=== PATIENT | female | born 1945 | race Caucasian/White ===

== ENCOUNTER 2018-06-29 16:02 | Observation (INO) | payer OTHER, MEDICARE, SELFPAY ==
[2018-06-29 16:05] VITALS: BP 148/69; PULSE 107; RESP 22; TEMP 37.1; O2SAT 98
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
--- NOTE | 2018-06-29 18:14 | NUR.NOTE ---
To radiology for xrays with escort, via stretcher, at 1800. Multiple attempts to obtain peripheral access. Shirt Turner attempt x2. Crystal RN attempts x2 with US without success. 3rd RN to try, however patient in Xray. Dr. Pisano aware. Anesthesia contacted and line placed while patient in CT, per report.Nursing Note:
[2018-06-29 18:17] LABS: Abs Immature Grans 0.05 k/cumm (0.0-0.09); Absolute Basophil Count 0.03 k/cumm (0.0-0.2); Absolute Lymphocyte Count 0.97 k/cumm (1.2-3.4); Basophils % 0.2; Eosinophils % 0.7; HCT 41.5 % (36.0-46.0); HGB 13.7 g/dL (12.0-15.5); Immature Grans % 0.3; Lymphocytes % 5.8; Mean Corpuscular Hemoglobin 28.8 pg (27.0-33.0); Mean Corpuscular Volume 87.4 fL (80-95); Mean Platelet Volume 10.5 fL (8.0-11.0); Monocytes % 5.4; Neutrophils % 87.6; Platelet Count 245 x1000/uL (130-400); RBC 4.75 m/cumm (4.00-5.20); White Blood Cell Count 16.74 k/cumm (4.4-10.8)
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
[2018-06-29 18:26] LABS: Absolute Eosinophil Count 0.12 k/cumm (0.0-0.7); Absolute Neutrophil Count 14.66 k/cumm (1.2-6.7)
[2018-06-29 18:28] LABS: ALT 16 U/L (12-78); AST 16 U/L (15-37); Albumin 3.3 g/dL (3.4-5.0); Alkaline Phosphatase 121 U/L (46-116); Anion Gap 12.8 mmol/L (3-11); BUN 31 mg/dL (7-18); Bilirubin, Total 0.3 mg/dL (0.2-1.0); CO2 29.2 mmol/L (21.0-32.0); CREATININE 1.38 mg/dL (0.55-1.02); Calcium 9.6 mg/dL (8.5-10.1); Chloride 99 mmol/L (98-107); Glucose 93 mg/dL (70-100); Magnesium 1.6 mg/dL (1.8-2.4); Sodium 141 mmol/L (136-145); Total Protein 7.6 g/dL (6.4-8.2); Troponin I 0.04 ng/mL (0.00-0.06)
[2018-06-29] MEDS: Normal Saline 250 ML IV (19:30)
[2018-06-29] MEDS: Omnipaque 350 MG/ML 50 ML BTL IV (19:41)
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
[2018-06-29 19:51] VITALS: TEMP 36.9
[2018-06-29] MEDS: fentaNYL 100 MCG/2 ML VIAL 25 MCG IVP (19:51)
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
[2018-06-29 20:00] VITALS: BP 153/93; PULSE 102; RESP 16; TEMP 36.8; O2SAT 17
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
[2018-06-29] MEDS: Potassium Chloride 20 MEQ TABCR 40 MEQ PO (20:19)
[2018-06-29] MEDS: Magnesium Oxide 400 MG TAB PO (20:21)
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
--- NOTE | 2018-06-29 20:52 | NUR.NOTE ---
Vidal is uncertain of meds and doses of medication that she takes. She does not have a med list with her.Nursing Note:
[2018-06-29 21:38] VITALS: BP 147/89; PULSE 106; RESP 12; TEMP 38.3; O2SAT 96
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
[2018-06-29] MEDS: fentaNYL 100 MCG/2 ML VIAL 50 MCG IVP ×2 (22:06→23:49)
[2018-06-29 22:30] VITALS: BP 147/89; PULSE 106; RESP 12; TEMP 38.3; O2SAT 96
[2018-06-29 22:55] VITALS: BP 135/90; PULSE 111; RESP 20; TEMP 38.5; O2SAT 94
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
[2018-06-29] MEDS: Ibuprofen 600 MG TAB PO (23:48)
[2018-06-29] MEDS: Normal Saline Flush 10 ML SYR IVP (23:50)
[2018-06-30 00:30] VITALS: PULSE 105
[2018-06-30 00:46] LABS: Bilirubin Negative (Negative); Blood Trace-intact (Negative); Clarity Clear; Glucose Negative (Negative); Ketones Negative (Negative); Leukocyte Esterase Negative (Negative); Nitrite Negative (Negative); Urobilinogen 0.2 EU/dL (Up TO 0.2)
[2018-06-30 00:55] LABS: Bacteria Rare HPF (Negative); C & S Indicated? No; Casts Negative LPF (Negative); Crystals Negative HPF (Negative); Epithelial Cells Moderate HPF (Negative); Mucus Negative (Negative); WBC Negative HPF (0-5)
[2018-06-30] MEDS: Normal Saline 250 ML 500 ML IV (02:08)
[2018-06-30 03:47] VITALS: BP 119/76; PULSE 71; RESP 20; TEMP 37.6; O2SAT 95
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
[2018-06-30 07:00] VITALS: PULSE 89
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
[2018-06-30 07:13] VITALS: BP 115/80; PULSE 88; RESP 19; TEMP 36.6; O2SAT 94
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
[2018-06-30 07:33] LABS: Abs Immature Grans 0.01 k/cumm (0.0-0.09); Absolute Basophil Count 0.04 k/cumm (0.0-0.2); Absolute Eosinophil Count 0.09 k/cumm (0.0-0.7); Absolute Lymphocyte Count 1.35 k/cumm (1.2-3.4); Absolute Monocyte Count 0.54 k/cumm (0.11-0.7); Basophils % 0.7; Eosinophils % 1.5; HGB 11.8 g/dL (12.0-15.5); Immature Grans % 0.2; Lymphocytes % 22.1; Mean Corp. HGB Concentration 32.8 g/dL (32.0-36.0); Mean Corpuscular Hemoglobin 28.6 pg (27.0-33.0); Mean Corpuscular Volume 87.4 fL (80-95); Mean Platelet Volume 10.4 fL (8.0-11.0); Monocytes % 8.9; Neutrophils % 66.6; Platelet Count 218 x1000/uL (130-400); RBC 4.12 m/cumm (4.00-5.20); RBC Distribution Width 14.1 % (11.7-14.6)
[2018-06-30 07:35] LABS: Absolute Neutrophil Count 4.06 k/cumm (1.2-6.7)
[2018-06-30 07:42] LABS: BUN 31 mg/dL (7-18); CREATININE 1.55 mg/dL (0.55-1.02); Chloride 104 mmol/L (98-107); Estimated GFR 33.06 (mL/min/1.73m2); Glucose 126 mg/dL (70-100); Magnesium 1.7 mg/dL (1.8-2.4); Potassium 3.2 mmol/L (3.5-5.1); Sodium 141 mmol/L (136-145)
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
[2018-06-30] MEDS: Ketorolac 15 MG/ML VIAL IVP (08:57)
[2018-06-30] MEDS: Normal Saline Flush 10 ML SYR IVP (08:58)
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
[2018-06-30 11:35] VITALS: BP 138/96; PULSE 87; RESP 19; TEMP 37.1; O2SAT 97
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
[2018-06-30 13:11] VITALS: PULSE 99
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
== END 2018-06-30 14:54 | disposition home health service (06) ==
LOC: ER 21:33 → MS 06-30 08:41
PROVIDERS: Admitting Provider Surgery; Emergency Provider Physician Assistant; PCP Family Medicine; Visit Provider Surgery
DX: S20.211A Contusion of right front wall of thorax, initial encounter (principal); S80.02XA Contusion of left knee, initial encounter; S80.01XA Contusion of right knee, initial encounter; S10.83XA Contusion of other specified part of neck, initial encounter; S82.102A Unspecified fracture of upper end of left tibia, initial encounter for closed fracture; S82.402A Unspecified fracture of shaft of left fibula, initial encounter for closed fracture; V49.40XA Driver injured in collision with unspecified motor vehicles in traffic accident, initial encounter; M54.5 Low back pain; G89.29 Other chronic pain; I10 Essential (primary) hypertension; Z96.652 Presence of left artificial knee joint; R10.30 Lower abdominal pain, unspecified
CPT/HCPCS: 36415; 73552; 74177; 80048; 80053; 96361; 96374; 96375; 97162; 97530; 99222; 99232; 99239; 99253; 99285; NC; 70450; 71260; 72125; 73564; 81003; 81015; 83735; 84484; 85025; 99284; G0378; J1885; J3010; L1830; Q9967

== ENCOUNTER → 2018-07-28 10:22 | Outpatient (BNVA) | payer OTHER, SELFPAY | PROVIDERS: PCP Family Medicine; Referring Provider Family Medicine; Visit Provider Student in an Organized Health Care Education/Training Program | DX: S80.01XA Contusion of right knee, initial encounter (principal); S80.02XA Contusion of left knee, initial encounter; V89.9XXA Person injured in unspecified vehicle accident, initial encounter; M17.11 Unilateral primary osteoarthritis, right knee | CPT/HCPCS: 99212; 99213 ==

== ENCOUNTER 2018-12-07 00:29 | Outpatient (CLI) | payer MEDICARE, SELFPAY ==
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
== END 2018-12-07 00:49 ==
PROVIDERS: PCP Family Medicine; Visit Provider Physician Assistant Medical
DX: N64.4 Mastodynia (principal); N63.11 Unspecified lump in the right breast, upper outer quadrant; N60.11 Diffuse cystic mastopathy of right breast; N64.1 Fat necrosis of breast
CPT/HCPCS: 76642; 77062; 77066; G0279

== ENCOUNTER 2019-11-08 01:38 | Outpatient (CLI) | payer MEDICARE, SELFPAY ==
[2019-11-08 11:42] LABS: BUN 31 mg/dL (7-18); Chloride 106 mmol/L (98-107); Glucose 108 mg/dL (74-106); HDL Cholesterol 71 mg/dL (40-60); Sodium 145 mmol/L (136-145)
[2019-11-08 11:43] LABS: Anion Gap 11.5 mmol/L (3-11); CO2 27.5 mmol/L (21.0-32.0); CREATININE 1.32 mg/dL (0.55-1.02); Calcium 9.5 mg/dL (8.5-10.1); Calculated LDL 66 mg/dL (<100); Cholesterol 158 mg/dL (<200); Estimated GFR 39.56 (mL/min/1.73m2); Potassium 3.2 mmol/L (3.5-5.1); TSH (W/Ref FT4) 6.92 uIU/mL (0.36-3.74); Triglyceride 109 mg/dL (<150)
[2019-11-08 12:03] LABS: FREE T4 1.23 ng/dL (0.76-1.46)
== END 2019-11-08 01:58 ==
PROVIDERS: PCP Family Medicine; Visit Provider Family Medicine
DX: E78.5 Hyperlipidemia, unspecified (principal); I10 Essential (primary) hypertension; E03.9 Hypothyroidism, unspecified
CPT/HCPCS: 36415; 80048; 80061; 84439; 84443

== ENCOUNTER 2020-01-23 03:27 | Outpatient (CLI) | payer MEDICARE, SELFPAY ==
[2020-01-23 14:01] LABS: Bilirubin Negative (Negative); Blood Trace-lysed (Negative); Clarity Clear (Clear); Glucose Negative (Negative); Ketones Negative (Negative); Leukocyte Esterase Negative (Negative); Nitrite Negative (Negative); Specific Gravity >= 1.030 (1.005-1.025); Urobilinogen 0.2 EU/dL (Up TO 0.2)
[2020-01-23 14:12] LABS: Bacteria Rare HPF (Negative); C & S Indicated? No; Crystals Negative HPF (Negative); Epithelial Cells Moderate HPF (Negative); Mucus Negative (Negative); WBC 0-2 HPF (0-5)
== END 2020-01-23 03:47 ==
PROVIDERS: PCP Family Medicine; Visit Provider Family Medicine
DX: R30.0 Dysuria (principal)
CPT/HCPCS: 81003; 81015

== ENCOUNTER 2020-10-02 01:40 | Outpatient (CLI) | payer OTHER, SELFPAY ==
--- NOTE | 2020-10-02 | DI.MRI_ITS ---
Exam(s) MR BRAIN WO/W EXAM: MR BRAIN WO/W CLINICAL HISTORY: PULSATILE TINNITUS LT EAR, H93.A2, ? BIH TECHNIQUE: Multiplanar multisequence MRI of the brain was performed. Postcontrast imaging was obtai emeka following the noncontrast scan. COMPARISON: No exams were available for comparison FINDINGS: The ventricular system is normal in appearance. No signal abnormality identified in the brain except for minimal scattered white matter focal areas o f signal abnormality consistent with mild microvascular ischemic change.. The orbital and temporal bone structures appear intact as does the pituitary. Diffusion weighted imaging shows no evidence of infarction. Susceptibility weighted imaging shows no evidence of intracranial hemorrhage. There is normal flow void in the [place] vasculature. Post contrast T1 weighted coronal axial images show no evidence of an intracranial mass lesion enhanc ing. MP rage imaging is unremarkable. IMPRESSION: Normal brain MRI for age including post contrast imaging. DATA REPOSITORY:
[2020-10-02 14:55] LABS: CREATININE 1.3 mg/dL (0.55-1.02); Estimated GFR 40.15 (mL/min/1.73m2)
[2020-10-02] MEDS: Normal Saline Flush 10 ML SYR IVP (15:56)
[2020-10-02] MEDS: Gadoterate meglumine 20 ML VIAL IVP (15:57)
== END 2020-10-02 02:00 ==
PROVIDERS: PCP Family Medicine; Visit Provider Otolaryngology
DX: C73 Malignant neoplasm of thyroid gland (principal); H93.A2 Pulsatile tinnitus, left ear
CPT/HCPCS: 36415; 70553; 82565

== ENCOUNTER 2020-10-25 03:42 | Outpatient (CLI) | payer OTHER, SELFPAY ==
[2020-10-25 13:26] LABS: Anion Gap 12.5 mmol/L (3-11); BUN 22 mg/dL (7-18); CO2 27.5 mmol/L (21.0-32.0); CREATININE 1.2 mg/dL (0.55-1.02); Calcium 9.2 mg/dL (8.5-10.1); Calculated LDL 64 mg/dL (<100); Chloride 103 mmol/L (98-107); Cholesterol 167 mg/dL (<200); Estimated GFR 44.04 (mL/min/1.73m2); Glucose 107 mg/dL (74-106); HDL Cholesterol 80 mg/dL (40-60); Potassium 3.1 mmol/L (3.5-5.1); Sodium 143 mmol/L (136-145); TSH (W/Ref FT4) 2.01 uIU/mL (0.36-3.74); Triglyceride 119 mg/dL (<150)
== END 2020-10-25 03:43 | disposition home or self-care (01) ==
LOC: LBO 03:42
PROVIDERS: PCP Family Medicine; Visit Provider Family Medicine
DX: I10 Essential (primary) hypertension (principal); E78.2 Mixed hyperlipidemia; C73 Malignant neoplasm of thyroid gland
CPT/HCPCS: 36415; 80048; 80061; 84443

== ENCOUNTER 2021-01-02 01:56 | Outpatient (CLI) | payer OTHER, SELFPAY ==
--- NOTE | 2021-01-02 | DI.CT_ITS ---
Exam(s) CT BRAIN CTA EXAM: CT BRAIN CTA CLINICAL HISTORY: PULSATILE TINNITUS. TECHNIQUE: Imaging Protocol: Both noninfused and contrast infused CT scans of the brain were perform ed. IV Contrast Dose =85 cc Axial computed tomography images with coronal and sagittal reformatted images were created and review ed COMPARISON: CT CT CHEST/ABD/PEL W from 06/29/2018 FINDINGS: CT angiography of the brain was performed. Both internal carotid arteries are patent in the upper neck and skull base and carotid canals and are also demonstrated to be patent within the cavernous sinuses bilaterally. Supraclinoid aspects are p atent. Middle cerebral arteries are patent out to the sylvian fissure branches. Both A1 segments ar e patent. Both anterior cerebral arteries are patent. There is no evidence of aneurysm at the level of the anterior communicating artery. With respect to the history of pulsatile tinnitus, both internal carotid arteries are patent in the s kull base-carotid canals. There does not appear to be bone dehiscence of the medial murray of the car otid canals. No asymmetry at these levels evident. POSTERIOR CIRCULATION: Both vertebral arteries are patent in the skull base and exhibit equilibrium a them is and both contribute to the formation of the basilar artery at the skull base. The basilar a rtery ascends with normal luminal diameter. Distally it gives off superior cerebellar arteries and a lia this level terminates as posterior cerebral arteries. The right posterior cerebral artery also receives flow from a posterior communicating artery on the right side of the upxfdj-tv-Mpoivi. There is no evidence of aneurysm at the level the tip of the basilar artery nor elsewhere in the [place]. There are no skull fractures nor fluid in the visualized paranasal sinuses. There is no evidence of intracranial hemorrhage, mass effect, or shift of midline structures. There are no extra-axial fluid collections. The ventricles are not enlarged or shifted and there is no blo od within the ventricular system nor within the basal cisterns. There are no ring enhancing lesions in the brain and there is no abnormal meningeal enhancement, foca l or diffuse. IMPRESSION: No significant intracranial findings.Intracranial arteries are patent. No aneurysms. No asymmetry o f the internal carotid arteries in the skull base, given the history here. No significant enhancing intracranial findings. RADIATION DOSE DELIVERED: 1,922.86mGy.cm Total DLP DATA REPOSITORY: All CT scans at this facility are submitted to the National Radiology Data Registry (NRDR) Dose Index Registry (DIR) with the [employer] (ACR). RADIATION OPTIMIZATION: All CT scans at this facility use at least one of these dose optimization te chniques: automated exposure control; mA and/or kV adjustment per patient size (includes targeted exa ms where dose is matched to clinical indication); or iterative reconstruction.
[2021-01-02 12:21] LABS: CREATININE 1.2 mg/dL (0.55-1.02); Estimated GFR 44.04 (mL/min/1.73m2)
[2021-01-02] MEDS: Omnipaque 350 MG/ML 100 ML BTL IJ (14:12)
[2021-01-02] MEDS: Normal Saline - Diluent 50 ML VIAL IV (14:13)
== END 2021-01-02 02:16 ==
PROVIDERS: PCP Family Medicine; Visit Provider Otolaryngology
DX: H93.A9 Pulsatile tinnitus, unspecified ear (principal); C73 Malignant neoplasm of thyroid gland
CPT/HCPCS: 70496; 82565; J3490

== ENCOUNTER 2021-01-29 01:01 | Outpatient (CLI) | payer MEDICARE, SELFPAY ==
--- NOTE | 2021-01-29 | DI.MAMMO_ITS ---
Exam(s) MAMMO SCREENING EXAM: MAMMO SCREENING CLINICAL HISTORY: SCREENING, Z12.31 TECHNIQUE: Mammograms were interpreted according to the usual protocol including computer analysis w [employer] CAD system, tomosynthesis and C-view imaging. COMPARISON: 2013 through 2018. FINDINGS: The breasts are composed of mainly fatty density , Breast Density category A. No suspicious masses or suspicious microcalcifications are seen. No skin thickening or abnormal axillary lymph nodes are seen. There has been no significant change from prior exams. IMPRESSION: BI-RADS Category 1, Negative mammogram Yearly screening mammography is recommended. Breast Density - Category A, fatty density. A negative radiographic report should not delay biopsy if a dominant or clinically suspicious mass is present. Up to ten percent of cancers are not identified on mammography. A negative report may reinforce clinical impression. Adenosis and dense breasts may obscure an underlying neoplasm. False positive reports average 6 to 10%. Patient will receive a letter notifying them of these results.
== END 2021-01-29 01:21 ==
PROVIDERS: PCP Family Medicine; Visit Provider Family Medicine
DX: Z12.31 Encounter for screening mammogram for malignant neoplasm of breast (principal)
CPT/HCPCS: 77063; 77067

== ENCOUNTER 2021-04-15 01:46 | Outpatient (CLI) | payer MEDICARE, SELFPAY ==
--- NOTE | 2021-04-15 14:30 | DI.RAD_ITS ---
Exam(s) XR HIP RT COMPLETE AP PELVIS EXAM: XR HIP RT COMPLETE AP PELVIS INDICATION: RT HIP PAIN AND WEAKNESS. COMPARISON: No exams were available for comparison TECHNIQUE: 2D digital imaging was performed. FINDINGS: Exam is somewhat limited by patient body habitus with overlying abdominal soft tissues. There is mil d bilateral hip joint space narrowing and mild bilateral acetabular spurring. Fixation plate is note d in the femur, partially included on the exam. There is a chronic appearing deformity of the right iliac crest. Are degenerative changes are seen at both SI joints. Disc space narrowing is seen in t he lower lumbar spine IMPRESSION: Mild degenerative changes both hips. DATA REPOSITORY: RADIATION DOSE DELIVERED:
--- NOTE | 2021-04-15 14:45 | DI.MRI_ITS ---
Exam(s) MR LUMBAR SPINE WO EXAM: MR LUMBAR SPINE WO CLINICAL HISTORY: RT LEG WEAKNESS. TECHNIQUE: Multiplanar multisequence MRI of the Lumbar spine was performed. COMPARISON: CT CT CHEST/ABD/PEL W from 06/29/2018 CR XR HIP RT COMPLETE AP PELVIS from 04/15/2021 FINDINGS: Bones: The last intervertebral disc space is designated the L5/S1 level for the numbering purpose of this examination. The vertebral body heights are well maintained. Alignment is satisfactory. The si gnal characteristics are unremarkable. Cord: The conus tip ends at the T12 level. It is of normal size and signal intensity. T12-L1: No disc herniations or bulges are present. L1-2: Disc osteophytes, eccentric toward the right. Small right foraminal disc protrusion causing neural foraminal narrowing.. There is soft tissue density material inferior to this level, posterior to the L2 vertebral body, which likely represents some extruded disc material. There are mild facet degenerative changes. Slight central canal stenosis. L2-3: Moderate loss of disc height. Disc osteophytes. Mild facet degenerative changes. Disc osteop hytes also cause right neural foraminal encroachment. L3-4: Mild loss of disc height. Broad-based disc osteophytes. Facet degenerative changes. Mild ri ght neural foraminal encroachment. Moderate left neural foraminal encroachment. L4-5: Moderate to severe loss of height. Disc osteophytes eccentric toward the left. Moderate face t degenerative changes and ligamentous hypertrophy. Moderate to severe left neural foramina narrowin g L5-S1: A moderate to severe loss of disc height and broad-based disc osteophytes. Mild facet degene rative changes. No central canal stenosis. Mild right neural foraminal encroachment. Small left-si ded nerve root sheath cyst S3. Soft tissues: The visualized SI joints and sacrum are well maintained. The paraspinal soft tissues ar e unremarkable. IMPRESSION: Right foraminal disc protrusion at L1-2 causing mild to moderate right neural foraminal narrowing. A small focus of extruded disc material seen inferior to this level. Multilevel degenerative disc changes and facet degenerative changes causing multilevel neural foramin al narrowing. DATA REPOSITORY:
--- NOTE | 2021-04-15 15:30 | DI.CT_ITS ---
Exam(s) CT SINUS WO EXAM: CT SINUS WO CLINICAL HISTORY: CHRONIC CONGESTION OF PARANASAL SINUS. Evaluate for sinusitis. TECHNIQUE: Imaging Protocol: Axial computed tomography images with coronal and sagittal reformatted images were created and reviewed. COMPARISON: CT CT BRAIN CTA from 01/02/2021 FINDINGS: Skull: Hyperostosis frontalis interna. Frontal sinuses: Normally aerated. Ethmoid air cells: Mucous retention within a single left ethmoid air cell. Remainder normally aerate d. Maxillary sinuses: Normally aerated. Sphenoid sinus: Normally aerated. Ostiomeatal complexes: Patent. Osseous nasal septum: Slightly deviated toward the right.. Visualized regional soft tissues: No acute findings. Orbits: Unremarkable. Mastoid Air Cells: Normally aerated. Brain: Grossly normal. IMPRESSION: Minimal sinus disease. RADIATION DOSE DELIVERED: 116.52mGy.cm Total DLP DATA REPOSITORY: All CT scans at this facility are submitted to the National Radiology Data Registry (NRDR) Dose Index Registry (DIR) with the [employer] (ACR). RADIATION OPTIMIZATION: All CT scans at this facility use at least one of these dose optimization te chniques: automated exposure control; mA and/or kV adjustment per patient size (includes targeted exa ms where dose is matched to clinical indication); or iterative reconstruction.
== END 2021-04-15 02:06 ==
PROVIDERS: PCP Family Medicine; Visit Provider Family Medicine
DX: M25.551 Pain in right hip (principal); M62.81 Muscle weakness (generalized); R09.81 Nasal congestion
CPT/HCPCS: 70486; 72148; 73502

== ENCOUNTER 2021-05-17 02:22 | Outpatient (CLI) | payer MEDICARE, SELFPAY ==
[2021-05-17 10:55] LABS: TSH 7.12 uIU/mL (0.36-3.74)
== END 2021-05-17 02:23 | disposition home or self-care (01) ==
LOC: LBO 02:23
PROVIDERS: Nurse Practitioner Family; PCP Family Medicine; Visit Provider Family Medicine
DX: E03.9 Hypothyroidism, unspecified (principal)
CPT/HCPCS: 36415; 84443

== ENCOUNTER 2021-08-23 02:16 | Outpatient (CLI) | payer MEDICARE, SELFPAY ==
[2021-08-23 12:59] LABS: Hemoglobin A1C 6.2 % (<5.7)
[2021-08-23 13:44] LABS: Anion Gap 8.9 mmol/L (3-11); BUN 29 mg/dL (7-18); CO2 30.1 mmol/L (21.0-32.0); CREATININE 1.2 mg/dL (0.55-1.02); Calcium 8.9 mg/dL (8.5-10.1); Calculated LDL 102 mg/dL (<100); Chloride 105 mmol/L (98-107); Cholesterol 212 mg/dL (<200); Estimated GFR 43.91 (mL/min/1.73m2); Glucose 125 mg/dL (74-106); HDL Cholesterol 82 mg/dL (40-60); Potassium 3.3 mmol/L (3.5-5.1); Sodium 144 mmol/L (136-145); Triglyceride 140 mg/dL (<150)
== END 2021-08-23 02:17 | disposition home or self-care (01) ==
LOC: LBO 02:16
PROVIDERS: PCP Family Medicine; Visit Provider Family Medicine
DX: E78.2 Mixed hyperlipidemia (principal); R73.9 Hyperglycemia, unspecified; E03.9 Hypothyroidism, unspecified
CPT/HCPCS: 36415; 80048; 80061; 83036; 84443

== ENCOUNTER 2022-01-02 04:22 | Outpatient (CLI) | payer MEDICARE, SELFPAY ==
[2022-01-02 10:54] LABS: Anion Gap 7.8 mmol/L (3-11); BUN 33 mg/dL (7-18); CO2 31.2 mmol/L (21.0-32.0); CREATININE 1.1 mg/dL (0.55-1.02); Calcium 9.7 mg/dL (8.5-10.1); Chloride 103 mmol/L (98-107); Estimated GFR 52.73 (mL/min/1.73m2); Glucose 113 mg/dL (74-106); Potassium 3.3 mmol/L (3.5-5.1); Sodium 142 mmol/L (136-145)
== END 2022-01-02 04:23 | disposition home or self-care (01) ==
LOC: LBO 04:22
PROVIDERS: PCP Family Medicine; Visit Provider Family Medicine
DX: E87.6 Hypokalemia (principal)
CPT/HCPCS: 36415; 80048

== ENCOUNTER → 2022-01-30 03:10 | Outpatient (CLI) | payer MEDICARE, SELFPAY ==
--- NOTE | 2022-01-30 11:45 | DI.MAMMO_ITS ---
Exam(s) MAMMO SCREENING EXAM: MAMMO SCREENING CLINICAL HISTORY: SCREENING TECHNIQUE: Bilateral full field digital CC and MLO mammographic images were obtained with 3D tomosyn thesis and utilizing computer aided detection (CAD). COMPARISON: Available for comparison. FINDINGS: Masses/Architectural Distortion: None seen. Microcalcifications: No suspicious pleomorphic-type are seen. Skin Thickening/Nipple Retraction: None. IMPRESSION: 1. No significant interval change with no specific features of malignancy noted. 2. Unless there is more urgent need, screening mammography is recommended, as per [employer] guidelines. BI-RADS Category 1 - Negative Breast Density - Category B - Scattered areas of fibroglandular density Breast density category C or D implies that the patient has dense breast tissue. Dense breast tissue is very common and is not abnormal but dense breast tissue can make it harder to find cancer on a ma mmogram. Also, dense breast tissue may increase their breast cancer risk. This information about the result of the mammogram report was provided to the patient to raise their awareness. Use this report when you speak with the patient about their risks for breast cancer, which includes their family hist ory. At that time, you may recommend for more screening tests (Ultrasound or MRI) as they might be us eful based on their risk. A negative radiographic report should not delay biopsy if a dominant or clinically suspicious mass is present. Up to ten percent of cancers are not identified on mammography. A negative report may reinforce clinical impression. Adenosis and dense breasts may obscure an underlying neoplasm. False positive reports average 6 to 10%. Patient will receive a letter notifying them of these results.
== END ==
PROVIDERS: PCP Family Medicine; Visit Provider Family Medicine
DX: Z12.31 Encounter for screening mammogram for malignant neoplasm of breast (principal)
CPT/HCPCS: 77063; 77067

== ENCOUNTER 2022-02-28 15:25 | Outpatient (REF) | payer MEDICARE, SELFPAY ==
[2022-02-28 14:30] LABS: Bilirubin Negative (Negative); Blood Trace-intact (Negative); Clarity Clear (Clear); Glucose Negative (Negative); Ketones Negative (Negative); Leukocyte Esterase Negative (Negative); Nitrite Negative (Negative); Specific Gravity >= 1.030 (1.005-1.025); Urobilinogen 0.2 EU/dL (Up TO 0.2); pH 6.5 (5-8)
[2022-02-28 14:37] LABS: Bacteria Few HPF (Negative); C & S Indicated? C&S Done As Ordered; Casts Negative LPF (Negative); Crystals Negative HPF (Negative); Epithelial Cells Many HPF (Negative); Mucus Negative (Negative); RBC 0-2 HPF (0-2); WBC Negative HPF (0-5)
== END 2022-02-28 15:26 | disposition home or self-care (01) ==
LOC: LBN 15:25
PROVIDERS: PCP Family Medicine; Visit Provider Family Medicine
DX: R35.0 Frequency of micturition (principal)
CPT/HCPCS: 81003; 81015; 87086

== ENCOUNTER 2022-05-05 03:02 | Outpatient (CLI) | payer MEDICARE, SELFPAY ==
[2022-05-05 10:36] LABS: Anion Gap 8.3 mmol/L (3-11); BUN 30 mg/dL (7-18); CO2 28.7 mmol/L (21.0-32.0); CREATININE 1.2 mg/dL (0.55-1.02); Calcium 9.5 mg/dL (8.5-10.1); Chloride 103 mmol/L (98-107); Glucose 108 mg/dL (74-106); Potassium 3.6 mmol/L (3.5-5.1); Sodium 140 mmol/L (136-145); TSH 2.38 uIU/mL (0.36-3.74)
== END 2022-05-05 03:03 | disposition home or self-care (01) ==
LOC: LBO 03:02
PROVIDERS: PCP Family Medicine; Visit Provider Family Medicine
DX: E03.9 Hypothyroidism, unspecified (principal); E87.6 Hypokalemia
CPT/HCPCS: 36415; 80048; 84443

== ENCOUNTER 2022-07-02 14:27 | Outpatient (REF) | payer MEDICARE, SELFPAY ==
[2022-07-02 22:49] LABS: RBC >50 HPF (0-2)
[2022-07-02 22:50] LABS: C & S Indicated? C&S Done As Ordered
== END 2022-07-02 14:28 | disposition home or self-care (01) ==
LOC: LBN 14:27
PROVIDERS: PCP Family Medicine; Visit Provider Physician Assistant Medical
DX: R30.0 Dysuria (principal)
CPT/HCPCS: 87077; 81015; 87086; 87186

== ENCOUNTER 2022-08-07 14:48 | Outpatient (REF) | payer MEDICARE, SELFPAY ==
[2022-08-07 16:55] LABS: Bilirubin Negative (Negative); Blood Trace-intact (Negative); Clarity Cloudy (Clear); Glucose Negative (Negative); Ketones Trace mg/dL (Negative); Leukocyte Esterase Moderate (Negative); Nitrite Negative (Negative); Specific Gravity >= 1.030 (1.005-1.025); Urobilinogen 0.2 mg/dL (Up to 0.2)
[2022-08-07 18:53] LABS: Bacteria Moderate HPF (Negative); C & S Indicated? Yes; Casts Negative LPF (Negative); Crystals Negative HPF (Negative); Epithelial Cells Rare HPF (Negative); Mucus Negative (Negative); WBC >50 HPF (0-5)
== END 2022-08-07 14:49 | disposition home or self-care (01) ==
LOC: LBN 14:48
PROVIDERS: PCP Family Medicine; Visit Provider Family Medicine
DX: R35.0 Frequency of micturition (principal)
CPT/HCPCS: 87077; 81003; 81015; 87086; 87186

== ENCOUNTER → 2022-08-28 13:51 | Outpatient (BNVA) | payer MEDICARE, SELFPAY | PROVIDERS: PCP Family Medicine; Referring Provider Family Medicine; Visit Provider Physical Therapy Assistant | DX: Z12.11 Encounter for screening for malignant neoplasm of colon (principal) ==

== ENCOUNTER 2022-09-03 16:06 | Outpatient (CLI) | payer MEDICARE, SELFPAY ==
[2022-09-03 16:57] LABS: Vitamin D 25 Total 18.7 ng/mL (30-100)
== END 2022-09-03 16:07 | disposition home or self-care (01) ==
LOC: LBO 16:11
PROVIDERS: PCP Family Medicine; Visit Provider Family Medicine
DX: R30.0 Dysuria (principal); E34.9 Endocrine disorder, unspecified
CPT/HCPCS: 36415; 82306; 87077; 87086; 87186

== ENCOUNTER 2022-09-15 14:32 | Emergency (ER) | payer MEDICARE, SELFPAY ==
[2022-09-15 14:41] VITALS: BP 127/92; PULSE 88; RESP 17; TEMP 36.9; O2SAT 96
--- NOTE | 2022-09-15 17:30 | DI.CT_ITS ---
Exam(s) CT ABDOMEN PELVIS W EXAM: CT ABDOMEN PELVIS W CLINICAL HISTORY: recurrent uti. TECHNIQUE: Imaging Protocol: Axial computed tomography images with coronal and sagittal reformatted images were created and reviewed CONTRAST MATERIAL: Intravenous: Omnipaque-350 100cc Oral: None COMPARISON: CT CT CHEST/ABD/PEL W from 06/29/2018 FINDINGS: VISUALIZED LUNG BASES: No nodules nor pleural effusions evident. ABDOMEN: There is no ascites. LIVER: There are no focal hepatic lesions evident. No dilated intrahepatic ducts. GALLBLADDER/BILIARY: Gallbladder surgically absent. CBD is mildly dilated, most probably related to patient's age and post cholecystectomy status. PANCREAS: No evidence of pancreatic mass nor dilatation of the pancreatic duct. SPLEEN: Spleen is not enlarged. No obvious intrasplenic lesions. No fluid around the spleen nor sub capsular hematoma. There is dense material medial to the spleen which most probably from recent inte rventional coiling. ADRENALS: There are no significant adrenal masses. KIDNEYS:Right kidney unremarkable. There is a small benign cyst is in the superior pole of the left kidney. No solid renal masses. No calculi nor hydronephrosis.. ABDOMINAL AORTA: Abdominal aorta is not enlarged. IVC: There is an IVC filter in place again noted. No intraluminal filling defects in the IVC nor in the femoral veins. LYMPH NODES:There is no retroperitoneal nor paraaortic adenopathy. ABDOMINAL WALL: No evidence of significant anterior abdominal wall nor inguinal hernia. GI: There is no evidence of bowel obstruction, free air, nor abscess. The colon exhibits a watkins colitis pattern. There is diverticulosis of the sigmoid noted without obvio us acute diverticulitis. PELVIS: GI: Appendix diameter is prominent, at 1 level measuring 9 mm. There is no air within the appendix. No calcified appendicolith noted.No periappendiceal stranding. LYMPH NODES: There is no intrapelvic nor inguinal adenopathy. REPRODUCTIVE: Uterus surgically absent. No abnormal adnexal masses. URINARY BLADDER: Collapsed. There is a single gas bubble in the urinary bladder lumen, possibly rela roland to recent instrumentation. Mildly thickened wall. OSSEOUS: No fractures and no significant osseous lesions. No fractures. Multilevel advanced disc space narrowing. IMPRESSION: 1. Again noted is evidence of prior cholecystectomy, hysterectomy, splenic artery embolization, and I VC filter again noted. 2. No bowel obstruction but there is a watkins colitis pattern, similar to prior study of 2019. However, the appearance may reflect fat halo sign throughout the length of the colon such as seen in chronic inflammatory bowel disease. 3. Appendix appears slightly prominent in size, but without surrounding streaking. Correlation any c linical signs of appendicitis recommended. 4. Mild urinary bladder findings. Correlate with any history of cystitis. Other findings as above. RADIATION DOSE DELIVERED: 1,241.7mGy.cm Total DLP DATA REPOSITORY: All CT scans at this facility are submitted to the National Radiology Data Registry (NRDR) Dose Index Registry (DIR) with the [employer] (ACR). RADIATION OPTIMIZATION: All CT scans at this facility use at least one of these dose optimization te chniques: automated exposure control; mA and/or kV adjustment per patient size (includes targeted exa ms where dose is matched to clinical indication); or iterative reconstruction.
--- NOTE | 2022-09-15 17:39 | DI.RAD_ITS ---
Exam(s) XR CHEST 2V PA LATERAL EXAM: XR CHEST 2V PA LATERAL CLINICAL HISTORY: fever, chills. TECHNIQUE: 2D digital imaging was performed. COMPARISON: No exams were available for comparison FINDINGS: 2 views: Interventional Coral material is noted in the left upper quadrant of the abdomen, probably in the spl enic artery. Heart size is normal. The mediastinum is not widened. Lungs are clear. No infiltrates nor pleural effusions. Multiple healed left-sided rib fractures noted. IMPRESSION: No acute pulmonary findings. Other findings as above DATA REPOSITORY: RADIATION DOSE DELIVERED:
[2022-09-15 18:05] LABS: Abs Immature Grans 0.02 10^3/uL (0.0-0.06); Absolute Basophil Count 0.05 10^3/uL (0.0-0.2); Absolute Eosinophil Count 0.13 10^3/uL (0.0-0.7); Absolute Lymphocyte Count 1.79 10^3/uL (1.2-3.4); Absolute Monocyte Count 0.54 10^3/uL (0.1-0.8); Absolute Neutrophil Count 5.25 10^3/uL (1.2-6.7); Basophils % 0.6; Eosinophils % 1.7; HCT 45.2 % (36.0-46.0); HGB 15.2 g/dL (11.2-15.7); Immature Grans % 0.3; MCH 28.8 pg (27.0-33.0); MCHC 33.6 % (32.0-36.0); MCV 86 fL (80-95); Monocytes % 6.9; Neutrophils % 67.5; Platelet Count 246 10^3/uL (130-400); RBC 5.27 10^6/uL (3.93-5.22); RDW 14.2 % (11.7-14.6); RDW-SD 44.5 fL; WBC 7.78 10^3/uL (4.4-10.8)
[2022-09-15 18:26] LABS: ALT 19 U/L (14-59); AST 35 U/L (15-37); Albumin 3.6 g/dL (3.4-5.0); Alkaline Phosphatase 142 U/L (46-116); BUN 20 mg/dL (7-18); Bilirubin, Total 0.5 mg/dL (0.2-1.0); CREATININE 1.2 mg/dL (0.55-1.02); Calcium 9.5 mg/dL (8.5-10.1); Chloride 101 mmol/L (98-107); Estimated GFR 47.21 (mL/min/1.73m2); Glucose 95 mg/dL (74-106); Magnesium 2.1 mg/dL (1.8-2.4); Sodium 140 mmol/L (136-145); Total Protein 7.8 g/dL (6.4-8.2)
[2022-09-15 18:30] LABS: Potassium 2.6 mmol/L (3.5-5.1)
[2022-09-15 18:35] LABS: TSH (W/Ref FT4) 3.43 uIU/mL (0.36-3.74)
[2022-09-15 18:38] LABS: Procalcitonin < 0.1 ng/mL
--- NOTE | 2022-09-15 18:45 | RT.EKG_ITS ---
APPROVED REPORT Exam: Resting ECG Reason for Exam: hypokalemia Patient Location: E HR:75 bpm ECG Measurements Heart Rate 75 AXIS IA 183 P 36 QRSd 104 QRS -21 QT 431 T 11 QTc 482 Conclusion Sinus rhythm...normal P axis, V-rate 60- 99 sinuis rhtyhm, left axis, normal intervals, non ischemic
[2022-09-15 18:50] VITALS: BP 164/84; PULSE 88; RESP 18; O2SAT 99
[2022-09-15] MEDS: Normal Saline - Diluent 50 ML VIAL IJ (19:07)
[2022-09-15] MEDS: Normal Saline Flush 10 ML SYR IVP (19:07)
[2022-09-15] MEDS: Omnipaque 350 MG/ML 100 ML BTL IJ (19:07)
[2022-09-15 19:18] LABS: Bilirubin Small (Negative); Blood Trace-intact (Negative); Clarity Clear (Clear); Glucose Negative (Negative); Ketones Trace mg/dL (Negative); Leukocyte Esterase Negative (Negative); Nitrite Negative (Negative); Urobilinogen 0.2 mg/dL (Up to 0.2)
[2022-09-15 19:27] LABS: Bacteria Rare HPF (Negative); C & S Indicated? No; Casts Negative LPF (Negative); Crystals Negative HPF (Negative); Epithelial Cells Rare HPF (Negative); Mucus Trace (Negative); RBC 0-2 HPF (0-2); WBC Negative HPF (0-5)
[2022-09-15] MEDS: Potassium Chloride 20 MEQ TABCR 40 MEQ PO (19:40)
[2022-09-15] MEDS: POTASSIUM CHLORIDE 20 MEQ/100 ML BAG 50 MEQ IVPB (19:40)
--- NOTE | 2022-09-15 20:08 | DI.VRAD_ITS ---
PROCEDURE INFORMATION: Exam: CT Abdomen And Pelvis With Contrast Exam date and time: 09/15/2022 7:08 PM Age: 77 years old Clinical indication: Other: Recurrent UTI; Patient HX: Hysterectomy, spleen surgery TECHNIQUE: Imaging protocol: Computed tomography of the abdomen and pelvis with contrast. Radiation optimization: All CT scans at this facility use at least one of these dose optimization techniques: automated exposure control; mA and/or kV adjustment per patient size (includes targeted exams where dose is matched to clinical indication); or iterative reconstruction. Contrast material: OMNIPAQUE 350; Contrast volume: 100 ml; Contrast route: INTRAVENOUS (IV); COMPARISON: CT CHEST/ABD/PEL W 06/29/2018 6:25 PM FINDINGS: Lungs: Mild atelectasis or fibrosis in the lung bases. Heart: Heart size normal. Mediastinal space: The visualized distal esophagus is largely contracted without gross abnormality. Liver: Question mild generalized fatty infiltration of the liver. Normal contour. No mass lesions. Slight central intrahepatic biliary ductal dilatation unchanged. Gallbladder and bile ducts: Prior cholecystectomy with expected mild postoperative dilatation of the common bile duct. This is unchanged. Pancreas: Moderate pancreatic atrophy without acute abnormality. No pancreatic ductal dilatation. Spleen: Metallic densities in the splenic hilum, probably prior coil embolization. Chronic splenic contour irregularity may represent remote prior injury or possible remote prior small splenic infarct, unchanged. Adrenal glands: Normal. No adrenal mass. Kidneys and ureters: No acute abnormalities. No hydronephrosis or hydroureter. No urinary tract stones are identified. There is a low-density circumscribed left renal cortical lesion suggesting renal cyst for which no further imaging evaluation is required. Stomach and bowel: The stomach is largely contracted. The small bowel is nondilated with no gross abnormality. Generalized colonic wall thickening consistent with colitis. No perforation or abscess. No pneumatosis or portal gas. Mild-moderate distal colonic diverticulosis without changes of diverticulitis. Appendix: The appendix is somewhat patulous measuring up to 8 mm diameter, unchanged in appearance from 06/29/2018 with no adjacent inflammatory changes to suggest appendicitis. Intraperitoneal space: No free fluid or air. Vasculature: No acute process. No abdominal aortic aneurysm. Mild calcific atherosclerosis. IVC filter grossly well-positioned and unchanged. No venous thrombosis. Moderate mixed plaque in the proximal SMA produces mild stenosis of less than 50%. Lymph nodes: No adenopathy. Urinary bladder: The urinary bladder is largely contracted with wall thickening which may relate to its contracted status. Mild adjacent stranding. Correlate with UA for evidence of cystitis. Reproductive: Prior hysterectomy. Bones/joints: Chronic appearing lower left lateral rib fractures. No acute osseous abnormalities. Osteopenia. Multilevel advanced disc degenerative changes in the lumbar spine with mild rightward convexity lumbar scoliosis. Soft tissues: Very small fatty umbilical hernia . No evidence of associated bowel herniation or strangulation. IMPRESSION: 1. Evidence of colitis. No perforation or abscess. 2. Distal colonic diverticulosis without diverticulitis. 3. The urinary bladder is largely contracted with wall thickening which may relate to its contracted status. Mild adjacent stranding. Correlate with UA for evidence of cystitis. 4. Additional nonemergent findings detailed above. Dictated and Authenticated by: Bowen Paredes MD. Ordering:TAMIR Newman MD
--- NOTE | 2022-09-15 20:09 | DI.VRAD_ITS ---
PROCEDURE INFORMATION: Exam: XR Chest Exam date and time: 09/15/2022 7:26 PM Age: 77 years old Clinical indication: Prior surgery; Surgery date: 6+ months; Surgery type: Spleen; Patient HX: Fever, chills TECHNIQUE: Imaging protocol: Radiologic exam of the chest. Views: 2 views. COMPARISON: CT CHEST/ABD/PEL W 06/29/2018 6:25 PM FINDINGS: Lungs: Normal pulmonary expansion. Pulmonary vasculature grossly normal. No gross pulmonary infiltrates or edema pattern. Mild bandlike atelectasis in the lung bases. Pleural spaces: No pleural effusion. No pneumothorax. Heart/Mediastinum: Heart size normal. No tracheal/mediastinal shift. Vasculature: Moderate aortic ectasia/tortuosity. Metallic coils in the left upper quadrant of the abdomen. Bones/joints: No acute osseous abnormalities are identified. Chronic lower left lateral rib fractures. IMPRESSION: No acute thoracic process. Dictated and Authenticated by: Bowen Paredes MD. Ordering:TAMIR Newman MD
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
[2022-09-15 20:41] VITALS: BP 162/79; PULSE 76; RESP 18; O2SAT 99
--- NOTE | 2022-09-15 20:43 | NUR.NOTE ---
Referral to Care Management to refer to [facility] Urology Dr Jones sooner rather than later for recurrent uti's.Nursing Note:
[2022-09-15 21:32] VITALS: BP 151/83; PULSE 82; RESP 18; TEMP 37; O2SAT 99
--- NOTE | 2022-09-15 21:35 | NUR.NOTE ---
Nursing Note: Provider team canceled second bag of potassium. Pt to be discharged. Pt profusely thanked this RN for care.
--- NOTE | 2022-09-17 11:56 | NUR.NOTE ---
Nursing Note:Accessed pt chart to determine EKG orders and if one needed to be deleted.
--- NOTE | 2022-09-17 13:35 | PDOC.CMACT ---
Date of service: 09/17/22 Time of Service: 13:35 Care Management Activity Note Activity Note Text Activity Note Text: Vidal is seen in the ED for acute hypokalemia and malaise. At the request of ED provider, CM coordinates a referral to [facility]rology to assist patient in obtaining an appointment for further evaluation and treatment of frequent UTIs. She has P Medicare Replacement Plan for insurance.
== END 2022-09-15 21:35 | disposition home or self-care (01) ==
PROVIDERS: Physician Assistant; Emergency Provider Physician Assistant; PCP Family Medicine
DX: E87.6 Hypokalemia (principal); R53.81 Other malaise; R11.2 Nausea with vomiting, unspecified
CPT/HCPCS: 80053; 84145; 87040; 93005; 96365; 96366; 99285; 71046; 74177; 81003; 81015; 83735; 84443; 85025; 93010; 99284; J3480; J3490

== ENCOUNTER 2022-09-29 16:35 | Outpatient (CLI) | payer MEDICARE, SELFPAY ==
[2022-09-29 16:12] LABS: BUN 23 mg/dL (7-18); CREATININE 1.3 mg/dL (0.55-1.02); Calcium 9.6 mg/dL (8.5-10.1); Chloride 103 mmol/L (98-107); Estimated GFR 42.88 (mL/min/1.73m2); Glucose 95 mg/dL (74-106); Potassium 3.2 mmol/L (3.5-5.1); Sodium 143 mmol/L (136-145)
== END 2022-09-29 16:36 | disposition home or self-care (01) ==
LOC: LBO 16:37
PROVIDERS: PCP Family Medicine; Visit Provider Family Medicine
DX: E87.6 Hypokalemia (principal)
CPT/HCPCS: 36415; 80048

== ENCOUNTER 2022-10-28 14:57 | Outpatient (REF) | payer MEDICARE, SELFPAY ==
[2022-10-28 15:33] LABS: Bilirubin Small (Negative); Blood Moderate (Negative); Clarity Cloudy (Clear); Glucose Negative (Negative); Ketones Trace mg/dL (Negative); Leukocyte Esterase Negative (Negative); Nitrite Positive (Negative); Specific Gravity 1.025 (1.005-1.025); Urobilinogen 0.2 mg/dL (Up to 0.2)
[2022-10-28 15:40] LABS: Bacteria Many HPF (Negative); C & S Indicated? No/Sq. Contamination; Casts Negative LPF (Negative); Crystals Negative HPF (Negative); Epithelial Cells Many HPF (Negative); Mucus Trace (Negative)
== END 2022-10-28 14:58 | disposition home or self-care (01) ==
LOC: LBN 14:57
PROVIDERS: PCP Family Medicine; Visit Provider Family Medicine
DX: N30.00 Acute cystitis without hematuria (principal)
CPT/HCPCS: 81003; 81015

== ENCOUNTER 2022-11-01 18:25 | Outpatient (REF) | payer MEDICARE, SELFPAY ==
[2022-11-01 16:44] LABS: Epithelial Cells Many HPF (Negative); RBC 0-2 HPF (0-2)
[2022-11-01 16:45] LABS: Bacteria Moderate HPF (Negative); C & S Indicated? C&S Done As Ordered; Crystals Negative HPF (Negative); Mucus Trace (Negative)
== END 2022-11-01 18:26 | disposition home or self-care (01) ==
LOC: LBN 18:25
PROVIDERS: PCP Family Medicine; Visit Provider Nurse Practitioner Family
DX: R35.1 Nocturia (principal); R82.998 Other abnormal findings in urine
CPT/HCPCS: 87077; 81015; 87086; 87186

== ENCOUNTER 2023-01-16 19:12 | Outpatient (CLI) | payer MEDICARE, SELFPAY ==
[2023-01-16 22:44] LABS: Parathyroid Hormone,Intact 128 pg/mL (19-88)
== END 2023-01-16 19:13 | disposition home or self-care (01) ==
LOC: LBO 19:12
PROVIDERS: PCP Family Medicine; Visit Provider Student in an Organized Health Care Education/Training Program
DX: E55.9 Vitamin D deficiency, unspecified (principal); E34.9 Endocrine disorder, unspecified
CPT/HCPCS: 36415; 82306; 83970

== ENCOUNTER 2023-03-07 15:58 | Outpatient (REF) | payer MEDICARE, SELFPAY | END 2023-03-07 15:59 | disposition home or self-care (01) | LOC: LBN 15:58 | PROVIDERS: PCP Family Medicine; Visit Provider Urology | DX: N39.0 Urinary tract infection, site not specified (principal) | CPT/HCPCS: 81003; 81015 ==

== ENCOUNTER 2023-04-17 18:05 | Outpatient (REF) | payer MEDICARE, SELFPAY ==
[2023-04-17 17:27] LABS: Bilirubin Negative (Negative); Blood Trace-lysed (Negative); Clarity Clear (Clear); Glucose Negative (Negative); Ketones Negative (Negative); Leukocyte Esterase Negative (Negative); Nitrite Negative (Negative); Specific Gravity 1.025 (1.005-1.025); Urobilinogen 0.2 mg/dL (Up to 0.2)
[2023-04-17 17:43] LABS: Bacteria Negative HPF (Negative); C & S Indicated? No; Casts Negative LPF (Negative); Crystals Negative HPF (Negative); Epithelial Cells Few HPF (Negative); Mucus Negative (Negative); RBC 0-2 HPF (0-2); WBC 0-2 HPF (0-5)
== END 2023-04-17 18:06 | disposition home or self-care (01) ==
LOC: LBN 18:05
PROVIDERS: PCP Family Medicine; Visit Provider Urology
DX: N39.0 Urinary tract infection, site not specified (principal)
CPT/HCPCS: 81003; 81015

== ENCOUNTER 2023-05-06 04:24 | Outpatient (CLI) | payer MEDICARE, SELFPAY ==
[2023-05-06 14:30] LABS: Abs Immature Grans 0.01 10^3/uL (0.0-0.06); Absolute Basophil Count 0.03 10^3/uL (0.0-0.2); Absolute Eosinophil Count 0.26 10^3/uL (0.0-0.7); Absolute Lymphocyte Count 1.36 10^3/uL (1.2-3.4); Absolute Monocyte Count 0.34 10^3/uL (0.1-0.8); Absolute Neutrophil Count 4.14 10^3/uL (1.2-6.7); Basophils % 0.5; Eosinophils % 4.2; HCT 46.1 % (36.0-46.0); HGB 15.4 g/dL (11.2-15.7); Immature Grans % 0.2; Lymphocytes % 22.1; MCH 29.5 pg (27.0-33.0); MCHC 33.4 % (32.0-36.0); MCV 88 fL (80-95); MPV 10.7 fL (8.0-11.0); Monocytes % 5.5; Neutrophils % 67.5; Platelet Count 207 10^3/uL (130-400); RBC 5.22 10^6/uL (3.93-5.22); RDW-SD 42.5 fL; WBC 6.14 10^3/uL (4.4-10.8)
[2023-05-06 15:10] LABS: ALT 41 U/L (14-59); AST 30 U/L (15-37); Alkaline Phosphatase 151 U/L (46-116); Anion Gap 9.9 mmol/L (3-11); BUN 21 mg/dL (7-18); Bilirubin, Total 0.6 mg/dL (0.2-1.0); CO2 27.1 mmol/L (21.0-32.0); Calcium 9.9 mg/dL (8.5-10.1); Chloride 104 mmol/L (98-107); Estimated GFR 58.75 (mL/min/1.73m2); Glucose 112 mg/dL (74-106); Potassium 3.3 mmol/L (3.5-5.1); Sodium 141 mmol/L (136-145); Total Protein 7.9 g/dL (6.4-8.2); Uric Acid 4.7 mg/dL (2.6-6.0)
[2023-05-06 15:47] LABS: Bilirubin Small (Negative); Blood Small (Negative); Clarity Clear (Clear); Glucose Negative (Negative); Ketones Negative (Negative); Leukocyte Esterase Negative (Negative); Nitrite Negative (Negative); Specific Gravity 1.025 (1.005-1.025); Urobilinogen 0.2 mg/dL (Up to 0.2)
[2023-05-06 16:06] LABS: Bacteria Few HPF (Negative); C & S Indicated? No/Sq. Contamination; Casts Negative LPF (Negative); Crystals Negative HPF (Negative); Epithelial Cells Many HPF (Negative); Mucus Negative (Negative)
== END 2023-05-06 04:25 | disposition home or self-care (01) ==
LOC: LBO 04:24
PROVIDERS: PCP Family Medicine; Visit Provider Student in an Organized Health Care Education/Training Program
DX: M17.11 Unilateral primary osteoarthritis, right knee; M11.841 Other specified crystal arthropathies, right hand
CPT/HCPCS: 36415; 80053; 81003; 81015; 84550; 85025; 87086

== ENCOUNTER 2023-07-22 04:28 | Outpatient (CLI) | payer MEDICARE, SELFPAY ==
[2023-07-22 12:37] LABS: Abs Immature Grans 0.01 10^3/uL (0.0-0.06); Absolute Basophil Count 0.04 10^3/uL (0.0-0.2); Absolute Eosinophil Count 0.26 10^3/uL (0.0-0.7); Absolute Lymphocyte Count 1.28 10^3/uL (1.2-3.4); Absolute Monocyte Count 0.35 10^3/uL (0.1-0.8); Absolute Neutrophil Count 4.18 10^3/uL (1.2-6.7); Basophils % 0.7; Eosinophils % 4.2; HCT 42.3 % (36.0-46.0); HGB 14.4 g/dL (11.2-15.7); Immature Grans % 0.2; Lymphocytes % 20.9; MCH 30.3 pg (27.0-33.0); MCV 89 fL (80-95); MPV 10.8 fL (8.0-11.0); Monocytes % 5.7; Neutrophils % 68.3; Platelet Count 192 10^3/uL (130-400); RBC 4.76 10^6/uL (3.93-5.22); RDW 13.5 % (11.7-14.6); RDW-SD 44.3 fL; WBC 6.12 10^3/uL (4.4-10.8)
[2023-07-22 14:15] LABS: ALT 52 U/L (14-59); AST 33 U/L (15-37); Albumin 3.9 g/dL (3.4-5.0); Alkaline Phosphatase 158 U/L (46-116); Anion Gap 12.4 mmol/L (3-11); BUN 24 mg/dL (7-18); Bilirubin, Total 0.8 mg/dL (0.2-1.0); CO2 25.6 mmol/L (21.0-32.0); Calcium 9.2 mg/dL (8.5-10.1); Chloride 106 mmol/L (98-107); Estimated GFR 58.39 (mL/min/1.73m2); GGT 12 U/L (5-55); Glucose 109 mg/dL (74-106); Potassium 3.1 mmol/L (3.5-5.1); Sodium 144 mmol/L (136-145)
[2023-07-22 14:54] LABS: Total Protein 7.5 g/dL (6.4-8.2)
[2023-07-22 15:47] LABS: Vitamin D 25 Total 45.4 ng/mL (30-100)
== END 2023-07-22 04:29 | disposition home or self-care (01) ==
PROVIDERS: PCP Family Medicine; Visit Provider Student in an Organized Health Care Education/Training Program
DX: R74.8 Abnormal levels of other serum enzymes (principal); E55.9 Vitamin D deficiency, unspecified
CPT/HCPCS: 36415; 80053; 82306; 82977; 85025

== ENCOUNTER 2023-07-22 14:54 | Outpatient (REF) | payer MEDICARE, SELFPAY ==
[2023-07-23 08:52] LABS: Calcium Urine 14.6 mg/dL (See Note); Calcium Urine 24 hr 146 mg/24hr (100-300); Timed Urine Volume 1000 mL
[2023-07-29 12:11] LABS: Misc Referral (UVM) See Comments
== END 2023-07-22 14:55 | disposition home or self-care (01) ==
LOC: LBN 14:54
PROVIDERS: PCP Family Medicine; Visit Provider Internal Medicine Endocrinology, Diabetes & Metabolism
DX: E21.3 Hyperparathyroidism, unspecified (principal)
CPT/HCPCS: 81050; 82340; 82570

== ENCOUNTER 2023-11-06 02:23 | Outpatient (CLI) | payer MEDICARE, SELFPAY ==
[2023-11-06 15:05] LABS: Abs Immature Grans 0.03 10^3/uL (0.0-0.06); Absolute Basophil Count 0.06 10^3/uL (0.0-0.2); Absolute Eosinophil Count 0.26 10^3/uL (0.0-0.7); Absolute Monocyte Count 0.42 10^3/uL (0.1-0.8); Absolute Neutrophil Count 3.61 10^3/uL (1.2-6.7); Eosinophils % 4.3 %; HCT 45.4 % (36.0-46.0); HGB 14.9 g/dL (11.2-15.7); Immature Grans % 0.5 %; Lymphocytes % 26.8 %; MCHC 32.8 % (32.0-36.0); MCV 92 fL (80-95); MPV 10.5 fL (8.0-11.0); Neutrophils % 60.4 %; Platelet Count 186 10^3/uL (130-400); RBC 4.96 10^6/uL (3.93-5.22); RDW 12.7 % (11.7-14.6); RDW-SD 42.9 fL; WBC 5.98 10^3/uL (4.4-10.8)
[2023-11-06 15:51] LABS: ALT 39 U/L (14-59); AST 36 U/L (15-37); Alkaline Phosphatase 171 U/L (46-116); Anion Gap 9.6 mmol/L (3-11); BUN 28 mg/dL (7-18); Bilirubin, Total 0.68 mg/dL (0.2-1.0); CO2 25.4 mmol/L (21.0-32.0); CREATININE 1.2 mg/dL (0.55-1.02); Calcium 9.4 mg/dL (8.5-10.1); Chloride 107 mmol/L (98-107); Estimated GFR 46.91 (mL/min/1.73m2); Glucose 107 mg/dL (74-106); Potassium 3.6 mmol/L (3.5-5.1); Sodium 142 mmol/L (136-145); Total Protein 7.6 g/dL (6.4-8.2); Uric Acid 4.6 mg/dL (2.6-6.0)
[2023-11-06 16:24] LABS: Vitamin D 25 Total 40.5 ng/mL (30-100)
== END 2023-11-06 02:24 | disposition home or self-care (01) ==
LOC: LBO 02:23
PROVIDERS: PCP Family Medicine; Visit Provider Student in an Organized Health Care Education/Training Program
DX: E55.9 Vitamin D deficiency, unspecified (principal); M11.20 Other chondrocalcinosis, unspecified site; M06.4 Inflammatory polyarthropathy; M11.9 Crystal arthropathy, unspecified; M65.80 Other synovitis and tenosynovitis, unspecified site; M17.11 Unilateral primary osteoarthritis, right knee; M11.841 Other specified crystal arthropathies, right hand
CPT/HCPCS: 36415; 80053; 82306; 84550; 85025

== ENCOUNTER 2023-11-06 19:01 | Emergency (ER) | payer MEDICARE, SELFPAY ==
[2023-11-06] VITALS (25 sets, daily range): BP systolic 159–174; BP diastolic 82–105; PULSE 71–108; RESP 11–23; TEMP 35.9–37.3; O2SAT 93–95
--- NOTE | 2023-11-06 19:00 | RT.EKG_ITS ---
APPROVED REPORT Exam: Resting ECG Reason for Exam: Chest pain Patient Location: E HR:80 bpm ECG Measurements Heart Rate 80 AXIS VA 168 P -22 QRSd 97 QRS -26 QT 366 T 28 QTc 423 Conclusion Sinus rhythm...normal P axis, V-rate 60- 99
--- NOTE | 2023-11-06 19:45 | DI.CT_ITS ---
Exam(s) CT BRAIN NECK CTA EXAM: CT BRAIN NECK CTA CLINICAL HISTORY: headache, R eye blurred vision. TECHNIQUE: Imaging Protocol: Axial CT angiography was performed with multi-slice acquisition and mu lti-planar and MIP reconstructions. CONTRAST MATERIAL: Intravenous: Omnipaque 350 Contrast volume:85 ml COMPARISON: CT CT BRAIN CTA from 01/02/[address] SINUS WO from 04/15/2021 FINDINGS: CT Head W/O and W contrast: Ventricles and Extra axial spaces: Normal in size and morphology for the patient's age. Hemorrhage: None. Cerebral parenchyma: No evidence of acute infarct or mass. Mild atrophy. Minimal white matter hua es. Midline shift: None. Brainstem/Cerebellum: No acute findings.. Calvarium: Hyperostosis frontalis interna. Visualized Paranasal sinuses/Mastoids: Clear. Soft Tissues: Unremarkable. Enhancement: Normal. Venous sinuses appear normal. Orbits: Unremarkable. CTA Brain W: Internal Carotid Arteries: Petrous: Normal. Cavernous: Normal. Cerebral: Normal. Middle Cerebral Arteries: Right: No aneurysm, occlusion or significant stenosis. Left: No aneurysm, occlusion or significant stenosis. Anterior Cerebral Arteries: Right: No aneurysm, occlusion or significant stenosis. Left: No aneurysm, occlusion or significant stenosis. Posterior cerebral Arteries: Right: No aneurysm, occlusion or significant stenosis. Left: No aneurysm, occlusion or significant stenosis. Vertebral Arteries: Right: No aneurysm, occlusion or significant stenosis. Left: No aneurysm, occlusion or significant stenosis. Basilar Artery: No aneurysm, occlusion or significant stenosis. CTA Neck W: Common Carotid: Vessels are tortuous, particularly left common carotid. No significant atherosclerot ic changes.. Right: No dissection, occlusion or significant stenosis. Left: No dissection, occlusion or significant stenosis. External Carotid: Right: No dissection, occlusion or significant stenosis. Left: No dissection, occlusion or significant stenosis. Internal Carotid: Right: No dissection, occlusion or significant stenosis. Left: No dissection, occlusion or significant stenosis. Vertebral Artery: Right: No dissection, occlusion or significant stenosis. Left: No dissection, occlusion or significant stenosis. Lung Apices: No acute findings. Bones: No acute abnormality. Degenerative changes . Soft Tissues: Normal. IMPRESSION: 1. CTA brain: Normal CTA examination of the [place]. 2. Head CT: Unremarkable CT Head. 3. CTA neck: Normal CTA examination of the neck. RADIATION DOSE DELIVERED: Total DLP DATA REPOSITORY: All CT scans at this facility are submitted to the National Radiology Data Registry (NRDR) Dose Index Registry (DIR) with the [employer] (A[employer]). RADIATION OPTIMIZATION: All CT scans at this facility use at least one of these dose optimization te chniques: automated exposure control; mA and/or kV adjustment per patient size (includes targeted exa ms where dose is matched to clinical indication); or iterative reconstruction.
[2023-11-06 19:58] LABS: Abs Immature Grans 0.01 10^3/uL (0.0-0.06); Absolute Basophil Count 0.04 10^3/uL (0.0-0.2); Absolute Eosinophil Count 0.27 10^3/uL (0.0-0.7); Absolute Lymphocyte Count 1.66 10^3/uL (1.2-3.4); Absolute Neutrophil Count 3.84 10^3/uL (1.2-6.7); Basophils % 0.6 %; Eosinophils % 4.3 %; HCT 42.4 % (36.0-46.0); HGB 14.3 g/dL (11.2-15.7); Immature Grans % 0.2 %; Lymphocytes % 26.3 %; MCH 30.7 pg (27.0-33.0); MCHC 33.7 % (32.0-36.0); MCV 91 fL (80-95); MPV 10.9 fL (8.0-11.0); Monocytes % 7.9 %; Neutrophils % 60.7 %; Platelet Count 168 10^3/uL (130-400); RBC 4.66 10^6/uL (3.93-5.22); RDW 12.8 % (11.7-14.6); RDW-SD 42.4 fL; WBC 6.32 10^3/uL (4.4-10.8)
--- NOTE | 2023-11-06 20:00 | DI.CT_ITS ---
Exam(s) CT CHEST PE CTA EXAM: CT CHEST PE CTA CLINICAL HISTORY: SOB, dizziness, headache. TECHNIQUE: Imaging Protocol: Axial CT angiography was performed with multi-slice acquisition and mu lti-planar reconstructions as well as axial, coronal and sagittal MIP reconstructions. CONTRAST MATERIAL: Intravenous: Omnipaque 350 Contrast volume:85 ml COMPARISON: CT CT CHEST/ABD/PEL W from 06/29/2018 FINDINGS: Pulmonary Arteries: No evidence of filling defect to suggest pulmonary emboli. Tracheobronchial tree: No mucous plugging. Mediastinum and Stephy: No dominant adenopathy or fluid collection. Pulmonary parenchyma: No consolidation or dominant measurable mass. Pleura: No effusion or pneumothorax. Heart: The heart is mildly dilated. Mild coronary artery calcifications are seen. Aorta: Thoracic aorta non-dilated. No dissection. Minimal atherosclerotic changes. Upper abdomen: No acute findings. Bones: Old rib fractures. Degenerative changes in the spine. Tubes, Catheters, and Lines: None Soft tissues: Unremarkable. IMPRESSION: No evidence of pulmonary embolism or other acute abnormality.. RADIATION DOSE DELIVERED: Total DLP DATA REPOSITORY: All CT scans at this facility are submitted to the National Radiology Data Registry (NRDR) Dose Index Registry (DIR) with the [employer] (ACR). RADIATION OPTIMIZATION: All CT scans at this facility use at least one of these dose optimization te chniques: automated exposure control; mA and/or kV adjustment per patient size (includes targeted exa ms where dose is matched to clinical indication); or iterative reconstruction.
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
[2023-11-06] MEDS: Aspirin 81 MG CHEW 324 MG CH (20:15)
[2023-11-06 20:23] LABS: ALT 37 U/L (14-59); AST 35 U/L (15-37); Albumin 3.7 g/dL (3.4-5.0); Alkaline Phosphatase 176 U/L (46-116); Anion Gap 10.3 mmol/L (3-11); BUN 30 mg/dL (7-18); Bilirubin, Total 0.53 mg/dL (0.2-1.0); CO2 26.7 mmol/L (21.0-32.0); CREATININE 1.2 mg/dL (0.55-1.02); Calcium 9.2 mg/dL (8.5-10.1); Chloride 109 mmol/L (98-107); Estimated GFR 46.91 (mL/min/1.73m2); Glucose 121 mg/dL (74-106); Magnesium 1.7 mg/dL (1.8-2.4); Potassium 3.4 mmol/L (3.5-5.1); Sodium 146 mmol/L (136-145); TSH (W/Ref FT4) 0.99 uIU/mL (0.36-3.74); Total Protein 7.2 g/dL (6.4-8.2); Troponin I < 50 ng/L (< or =60)
[2023-11-06] MEDS: Omnipaque 350 MG/ML 100 ML BTL IJ (20:32)
[2023-11-06 21:07] LABS: Bilirubin Negative (Negative); Blood Negative (Negative); Clarity Clear (Clear); Glucose Negative (Negative); Ketones Negative (Negative); Leukocyte Esterase Negative (Negative); Nitrite Negative (Negative); Urobilinogen 0.2 mg/dL (Up to 0.2)
[2023-11-06 21:11] LABS: D-Dimer 1031 ng/mlFEU (<500)
[2023-11-06 22:00] LABS: COVID-19 PCR Negative (Negative); Influenza A PCR Negative (Negative); Influenza B PCR Negative (Negative); RSV PCR Negative (Negative)
[2023-11-06 22:01] LABS: Source Nasopharynx
--- NOTE | 2023-11-06 22:02 | DI.VRAD_ITS ---
PROCEDURE INFORMATION: Exam: CTA Chest With Contrast Exam date and time: 11/06/2023 8:44 PM Age: 78 years old Clinical indication: Shortness of breath; Additional info: SOB, dizziness, headache TECHNIQUE: Imaging protocol: Computed tomographic angiography of the chest with contrast. Exam focused on the arteries. 3D rendering (Not supervised by radiologist): MIP and/or 3D reconstructed images were created by the technologist. Contrast material: OMNI 350; COMPARISON: CT CHEST/ABD/PEL W 06/29/2018 6:25 PM FINDINGS: Pulmonary arteries: No pulmonary artery filling defects. Aorta: Unremarkable. No aortic aneurysm. No aortic dissection. Lungs: Unremarkable. No consolidation. No masses. Pleural spaces: Unremarkable. No pneumothorax. No pleural effusion. Heart: Heart normal in size. Heart RV/LV ratio: 0.93. Coronary arteries: Coronary artery calcification. Lymph nodes: Unremarkable. No enlarged lymph nodes. Bones/joints: Multiple healed left rib fractures. The spine demonstrates mild degenerative changes at multiple levels. Soft tissues: Unremarkable. IMPRESSION: 1. No acute findings. 2. Coronary artery disease. Dictated and Authenticated by: Riley Haskins MD. Ordering:LIOR Donovan MD
--- NOTE | 2023-11-06 22:23 | DI.VRAD_ITS ---
PROCEDURE INFORMATION: Exam: CTA Head Without And With Contrast, Arteriography Exam date and time: 11/06/2023 8:32 PM Age: 78 years old Clinical indication: Pain; Headache; Additional info: Headache, R eye blurred vision TECHNIQUE: Imaging protocol: Computed tomographic angiography of the head without and with contrast. Exam focused on the arteries. 3D rendering (Not supervised by radiologist): MIP and/or 3D reconstructed images were created by the technologist. Contrast material: OMNI 350; COMPARISON: CT BRAIN CTA 01/02/2021 12:54 PM FINDINGS: ANTERIOR CIRCULATION: Right internal carotid artery: Intracranial segment is patent with no significant stenosis or occlusion. No aneurysm. Right middle cerebral artery: No occlusion or significant stenosis. No aneurysm. Right anterior cerebral artery: No occlusion or significant stenosis. No aneurysm. Left internal carotid artery: Intracranial segment is patent with no significant stenosis. No aneurysm. Left middle cerebral artery: No occlusion or significant stenosis. No aneurysm. Left anterior cerebral artery: No occlusion or significant stenosis. No aneurysm. POSTERIOR CIRCULATION: Right vertebral artery: No occlusion or significant stenosis. No aneurysm. Left vertebral artery: No occlusion or significant stenosis. No aneurysm. Basilar artery: No occlusion or significant stenosis. No aneurysm. Right posterior cerebral artery: No occlusion or significant stenosis. No aneurysm. Left posterior cerebral artery: No occlusion or significant stenosis. No aneurysm. Veins: Superior sagittal sinus, straight sinus, transverse sinuses, and sigmoid sinuses fill with contrast and are unremarkable. HEAD: Brain: No intracranial hemorrhage. No subdural collections. No midline shift. Moderate cerebral atrophy. Mild white matter hypodense regions. No hypervascular mass observed. Cerebral ventricles: Normal. No ventriculomegaly. Pituitary gland and sella: Partially empty sella. Bones: No acute skull fracture. Orbital cavities: Unremarkable. The superior ophthalmic veins are not dilated. No retro bulbar inflammatory changes are appreciated. Paranasal sinuses: No layering fluid in the paranasal sinuses. Mastoid air cells: Visualized mastoids are normal. No mastoid effusion. Soft tissues: Unremarkable. IMPRESSION: 1. No intracranial hemorrhage. 2. No large vessel occlusion. 3. No dural sinus venous thrombosis. PROCEDURE INFORMATION: Exam: CTA Neck Without And With Contrast Exam date and time: 11/06/2023 8:32 PM Age: 78 years old Clinical indication: Pain; Headache; Additional info: Headache, R eye blurred vision TECHNIQUE: Imaging protocol: Computed tomographic angiography of the neck without and with contrast. Exam focused on the cervical segments of the vasculature. 3D rendering (Not supervised by radiologist): MIP and/or 3D reconstructed images were created by the technologist. Contrast material: OMNI 350; COMPARISON: CT HEAD CERVICAL SPINE WO 06/29/2018 5:54 PM FINDINGS: Right common carotid artery: No stenosis. No dissection or occlusion. Right internal carotid artery: No stenosis of the extracranial segment. No dissection or occlusion. Right external carotid artery: No occlusion or stenosis of the origin. Left common carotid artery: No stenosis. No dissection or occlusion. Left internal carotid artery: No stenosis of the extracranial segment. No dissection or occlusion. Left external carotid artery: No occlusion or stenosis of the origin. Right vertebral artery: No stenosis. No dissection or occlusion. Left vertebral artery: No stenosis. No dissection or occlusion. Pharynx: Normal parapharyngeal fat spaces. Larynx: Normal epiglottis. Soft tissues: No soft tissue fluid collections. Bones/joints: Mild disc space narrowing and osteophyte formation are noted at C4-C5, C5-C6, and C6-C7. Reversal of the normal cervical lordosis is noted, possibly positional. There is no anterolisthesis or retrolisthesis. The posterior C1 ring is developmentally incomplete, a normal variant. IMPRESSION: No carotid or vertebral arterial dissection. No stenosis. No occlusion. REFERENCES: NASCET CRITERIA. The degree of stenosis in the cervical segment of the internal carotid artery is based on NASCET criteria. Normal is no stenosis. Mild is less than 50% stenosis. Moderate is 50-69% stenosis. Severe is 70% to 99% stenosis. Total occlusion is no detectable patent lumen. Dictated and Authenticated by: Yosvany Roman MD. Ordering:LIOR Donovan MD
[2023-11-06] MEDS: FAMOTIDINE 20 MG in Normal Saline 100 ML 400 MG IVPB (23:03)
[2023-11-06 23:21] LABS: Troponin I < 50 ng/L (< or =60)
[2023-11-06] MEDS: Magnesium Oxide 400 MG TAB PO (23:33)
[2023-11-07] MEDS: Potassium Bicarbonate/Cit AC 25 MEQ TABLET.EFF PO (00:01)
--- NOTE | 2023-11-07 06:22 | NUR.NOTE ---
Follow up referral faxed to PCP for next week. Faxed at [phone] with confirmation received [facility] Nursing Note:
[2023-11-09 12:47] LABS: Lyme Ab w Rflx to Lyme Confirm Negative (Negative)
[2023-11-10 18:02] LABS: Anaplasma phagocytophilum Negative (Negative); B. miyamotoi PCR Negative (Negative); Babesia divergens/MO-1 Negative (Negative); Babesia duncani Negative (Negative); Babesia microti Negative (Negative); Ehrlichia chaffeensis Negative (Negative); Ehrlichia ewingii/canis Negative (Negative); Ehrlichia muris eauclairensis Negative (Negative)
== END 2023-11-07 00:01 | disposition home or self-care (01) ==
PROVIDERS: Emergency Provider Nurse Practitioner Family; PCP Family Medicine
DX: R07.9 Chest pain, unspecified (principal); E83.42 Hypomagnesemia; E87.6 Hypokalemia; R79.89 Other specified abnormal findings of blood chemistry; I10 Essential (primary) hypertension; E78.5 Hyperlipidemia, unspecified; Z85.850 Personal history of malignant neoplasm of thyroid
CPT/HCPCS: 70496; 70498; 71275; 80053; 87637; 87798; 93005; 96365; 99285; 81003; 83735; 84443; 84484; 85025; 85379; 86618; 93010; 99284; J3490

== ENCOUNTER 2023-12-14 13:56 | Outpatient (REF) | payer MEDICARE, SELFPAY ==
[2023-12-14 15:46] LABS: Anion Gap 9.8 mmol/L (3-11); BUN 26 mg/dL (7-18); CO2 26.2 mmol/L (21.0-32.0); CREATININE 1.1 mg/dL (0.55-1.02); Calcium 9.4 mg/dL (8.5-10.1); Chloride 108 mmol/L (98-107); Estimated GFR 52.08 (mL/min/1.73m2); Glucose 104 mg/dL (74-106); Magnesium 1.9 mg/dL (1.8-2.4); Potassium 3.6 mmol/L (3.5-5.1); Sodium 144 mmol/L (136-145); Vitamin D 25 Total 44.2 ng/mL (30-100)
== END 2023-12-14 13:57 | disposition home or self-care (01) ==
LOC: NCHCN 13:56
PROVIDERS: PCP Family Medicine; Visit Provider Family Medicine
DX: E55.9 Vitamin D deficiency, unspecified (principal); I10 Essential (primary) hypertension
CPT/HCPCS: 80048; 82306; 83735

== ENCOUNTER 2024-05-03 12:27 | Outpatient (REF) | payer MEDICARE, SELFPAY ==
[2024-05-03 22:57] LABS: Anion Gap 9.8 mmol/L (3-11); BUN 25 mg/dL (7-18); CO2 28.2 mmol/L (21.0-32.0); Calcium 9.7 mg/dL (8.5-10.1); Chloride 106 mmol/L (98-107); Estimated GFR 58.39 (mL/min/1.73m2); Glucose 104 mg/dL (74-106); Potassium 3.8 mmol/L (3.5-5.1); Sodium 144 mmol/L (136-145)
[2024-05-05 09:31] LABS: TSH (W/Ref FT4) 1.66 uIU/mL (0.36-3.74)
== END 2024-05-04 08:52 | disposition home or self-care (01) ==
LOC: NCHCN 12:27
PROVIDERS: PCP Family Medicine; Visit Provider Family Medicine
DX: E03.9 Hypothyroidism, unspecified (principal); N18.30 Chronic kidney disease, stage 3 unspecified; I25.10 Atherosclerotic heart disease of native coronary artery without angina pectoris; R73.9 Hyperglycemia, unspecified
CPT/HCPCS: 80048; 84443

== ENCOUNTER 2024-05-09 14:12 | Outpatient (REF) | payer MEDICARE, SELFPAY ==
[2024-05-09 15:01] LABS: Calculated LDL 63 mg/dL (<100); Cholesterol 160 mg/dL (<200); HDL Cholesterol 83 mg/dL (40-60); Triglyceride 74 mg/dL (<150)
[2024-05-09 15:56] LABS: Hemoglobin A1C 5.9 % (<5.7)
== END 2024-05-09 14:13 | disposition home or self-care (01) ==
LOC: NCHCN 14:12
PROVIDERS: PCP Family Medicine; Visit Provider Family Medicine
DX: E78.5 Hyperlipidemia, unspecified (principal); R73.9 Hyperglycemia, unspecified
CPT/HCPCS: 80061; 83036

== ENCOUNTER 2024-08-11 08:24 | Outpatient (CLI) | payer MEDICARE, SELFPAY ==
[2024-08-11 12:02] LABS: Anion Gap 9.8 mmol/L (3-11); BUN 30 mg/dL (7-18); CO2 24.2 mmol/L (21.0-32.0); CREATININE 1.1 mg/dL (0.55-1.02); Calcium 9.8 mg/dL (8.5-10.1); Chloride 106 mmol/L (98-107); Estimated GFR 51.75 (mL/min/1.73m2); Glucose 122 mg/dL (74-106); Potassium 3.5 mmol/L (3.5-5.1); Sodium 140 mmol/L (136-145)
== END 2024-08-11 08:25 | disposition home or self-care (01) ==
LOC: LBO 08:24
PROVIDERS: PCP Family Medicine; Visit Provider Student in an Organized Health Care Education/Training Program
DX: Z79.1 Long term (current) use of non-steroidal anti-inflammatories (NSAID) (principal)
CPT/HCPCS: 36415; 80048

== ENCOUNTER 2025-01-31 01:05 | Outpatient (CLI) | payer MEDICARE, SELFPAY ==
--- NOTE | 2025-01-31 | DI.RAD_ITS ---
Exam(s) XR SHOULDER RT COMPLETE 2+V EXAM: XR SHOULDER RT COMPLETE 2+V CLINICAL HISTORY: RT SHOULDER PAIN, RT ROTATOR CUFF ARTHROPATHY,M12.811,M12.812. TECHNIQUE: 2D digital imaging was performed. COMPARISON: No exams were available for comparison FINDINGS: Four views No evidence of fracture or dislocation. However, there is subtle calcifications in the subacromial space related to the supraspinatus tendon consistent with calcific tendinitis. These extend to the level of the greater tuberosity. There are no degenerative changes in the glenohumeral joint. Mild degenerative changes in the AC joint. Clavicle and coracoid process appear unremarkable. IMPRESSION: Calcific rotator cuff tendinitis. DATA REPOSITORY: RADIATION DOSE DELIVERED:
--- NOTE | 2025-01-31 13:52 | DI.RAD_ITS ---
Exam(s) XR CERVICAL SPINE COMP 4-5V EXAM: XR CERVICAL SPINE COMP 4-5V CLINICAL HISTORY: DDD,INFLAMMATORY POLYARTHRITIS,. TECHNIQUE: 2D digital imaging was performed. COMPARISON: No exams were available for comparison FINDINGS: Five views No evidence of fracture, listhesis, nor offset of the spinal laminar line. There is chronic disc space narrowing at C4-5, C5-6, and C6-7 levels. Moderate degenerative changes are seen in the facet joints. There is no facet joint malalignment. No osseous lesions. No cervical ribs. IMPRESSION: Multilevel chronic degenerative disc disease. No abnormal straightening of the cervical curvature. DATA REPOSITORY: RADIATION DOSE DELIVERED:
--- NOTE | 2025-01-31 13:53 | DI.RAD_ITS ---
Exam(s) XR SHOULDER LT COMPLETE 2+V EXAM: XR SHOULDER LT COMPLETE 2+V CLINICAL HISTORY: LT SHOULDER PAIN, LT ROTATOR CUFF ARTHROPATHY,M12.811,M12.812,M25.511. TECHNIQUE: 2D digital imaging was performed. COMPARISON: CR XR SHOULDER RT COMPLETE 2+V from 01/31/2025 FINDINGS: Four views No evidence of fracture or dislocation. There are mild degenerative changes in the glenohumeral joint. There is also diminution in height of the subacromial space, suspicious for full-thickness rotator cuff tear. There are minimal degenerative changes in the AC joint. Ipsilateral clavicle unremarkable. Coracoid process unremarkable. IMPRESSION: Significant narrowing of the subacromial space which is suspicious for full- thickness rotator cuff tear. Recommend MRI for further evaluation DATA REPOSITORY: RADIATION DOSE DELIVERED:
== END 2025-01-31 01:25 ==
PROVIDERS: PCP Family Medicine; Visit Provider Student in an Organized Health Care Education/Training Program
DX: M12.811 Other specific arthropathies, not elsewhere classified, right shoulder (principal); M12.812 Other specific arthropathies, not elsewhere classified, left shoulder; M25.511 Pain in right shoulder; M50.121 Cervical disc disorder at C4-C5 level with radiculopathy; M50.122 Cervical disc disorder at C5-C6 level with radiculopathy; M50.123 Cervical disc disorder at C6-C7 level with radiculopathy
CPT/HCPCS: 72050; 73030